=== PATIENT | female | born 1985 | race Caucasian/White ===

== ENCOUNTER 2017-11-22 16:43 | Emergency (ER) | payer OTHER ==
[~2017-11-22 16:43] MED LIST: ABIL10TA8 PO; CENTCHW4 CHEW; VITA1000 PO
[2017-11-22 17:04] VITALS: BP 122/60; PULSE 90; RESP 16; TEMP 99.5; O2SAT 100
[2017-11-22 18:34] LABS: BASOPHIL % 0.5 % (0.0-2.0); EOSINOPHIL # 0.1 TH/MM3 (0-0.4); EOSINOPHIL % 0.6 % (0.0-4.0); HEMOGLOBIN 12.3 GM/DL (11.6-15.3); LYMPH % 32.1 % (9.0-44.0); LYMPHOCYTE # 2.9 TH/MM3 (1.0-4.8); MEAN CELL VOLUME 81.3 FL (80.0-100.0); MEAN CORPUSCULAR HEMOGLOBIN 28.5 PG (27.0-34.0); MEAN CORPUSCULAR HGB CONC 35.1 % (32.0-36.0); MEAN PLATELET VOLUME 8.5 FL (7.0-11.0); MONOCYTE # 1.1 TH/MM3 (0-0.9); NEUT % 54.8 % (16.0-70.0); PLATELET COUNT 228 TH/MM3 (150-450); RED CELL DISTRIBUTION WIDTH 12.8 % (11.6-17.2)
[2017-11-22 18:39] LABS: AMORPHOUS SEDIMENT, URINE RARE; BACTERIA, URINE RARE /hpf; BILIRUBIN, URINE NEG (NEG); BLOOD, URINE MOD (NEG); GLUCOSE,URINE NEG (NEG); KETONE, URINE NEG (NEG); NITRITE,URINE NEG (NEG); PH, URINE 5.5 (5.0-8.5); SQUAMOUS EPITHELIAL CELL URINE 4 /hpf (0-5); URINE COLOR YELLOW (YELLW/STRAW); URINE LEUKOCYTE ESTERASE MOD (NEG)
[2017-11-22] MEDS ORDERED: TYLE325T PO (18:50)
[2017-11-22] MEDS ORDERED: CIPR500T2 PO (18:50)
[2017-11-22] MEDS ORDERED: NAPR250T4 PO (18:50)
[2017-11-22] MEDS ORDERED: ZOFR4TAB PO (18:50)
[2017-11-22 18:52] LABS: ALBUMIN 3.9 GM/DL (3.4-5.0); ALT (GPT) 36 U/L (10-53); AST (GOT) 27 U/L (15-37); BICARBONATE 29.5 MEQ/L (21.0-32.0); BLOOD UREA NITROGEN 8 MG/DL (7-18); CALCIUM 8.8 MG/DL (8.5-10.1); CHLORIDE 101 MEQ/L (98-107); CREATININE 0.78 MG/DL (0.50-1.00); GLOMERULAR FILTRATION RATE 86 ML/MIN (>89); GLUCOSE,RANDOM 100 MG/DL (74-106); SODIUM (NA) 136 MEQ/L (136-145)
[2017-11-22 18:53] LABS: ALKALINE PHOSPHATASE 89 U/L (45-117); TOTAL BILIRUBIN ADULT 1.1 MG/DL (0.2-1.0); TOTAL PROTEIN 8.1 GM/DL (6.4-8.2)
--- NOTE | 2017-11-22 18:59 | PD ---
HPI Chief Complaint: GI Complaint Time Seen by Provider: 18:40 Travel History International Travel<30 days: No Contact w/Intl Traveler<30days: No Traveled to known affect area: No History of Present Illness HPI 32-year-old female came to the emergency room with history of right lumbar pain for 5 days followed by vomiting and unable to keep anything down. Patient says that she saw her primary care 3 days ago and was given ciprofloxacin for possible UTI. Patient has taken 3 doses of it. She was also given nausea medication to go home with and she has not had any vomiting in past 24 hours. No history of diarrhea. She has not had a bowel movement in past 3-4 days. Patient felt lump/not in her right lumbar area where she has been hurting. Vital signs are stable. Blood test was done out in triage and the results are back. No aggravating or relieving factors identified for the pain. No radiation of the pain. No history of hematuria or dysuria. PFSH Past Medical History Narrative Medical List of her past medical, surgical, social and family history is reviewed from the nursing note. ?: Unknown LMP: "implanon" : 2 Para: 2 Social History Alcohol Use: Yes ("OCASSIONALLY") Tobacco Use: No Substance Use: No Allergies-Medications (Allergen,Severity, Reaction): Coded Allergies: cefixime (Unverified Allergy, Unknown, rash, 11/22/17) clindamycin (Unverified Allergy, Unknown, rash, 11/22/17) nitrofurantoin (Unverified Allergy, Unknown, rash, 11/22/17) Comments List of her allergies reviewed from the nursing note. Reported Meds & Prescriptions Reported Meds & Active Scripts Active Reported Tylenol (Acetaminophen) 325 Mg Tab 500 Mg PO Q6H PRN Naproxen 250 Mg Tab 250 Mg PO BID Ciprofloxacin (Ciprofloxacin HCl) 500 Mg Tab 500 Mg PO BID Zofran (Ondansetron HCl) 4 Mg Tab 4 Mg PO Q6HR PRN Vitamin D-1000 (Cholecalciferol) 1,000 Unit Tab 1,000 Units PO DAILY Abilify (Aripiprazole) 10 Mg Tab 10 Mg PO DAILY Narrative Medication List of her home medications reviewed from the nursing note Review of Systems Except as stated in HPI: all other systems reviewed are Neg Physical Exam Narrative GENERAL: Awake, alert, obese, no obvious distress SKIN: Focused skin assessment warm/dry. HEAD: Atraumatic. Normocephalic. EYES: Pupils equal and round. No scleral icterus. No injection or drainage. ENT: No nasal bleeding or discharge. Mucous membranes pink and moist. NECK: Trachea midline. No JVD. CARDIOVASCULAR: Regular rate and rhythm. No murmur appreciated. RESPIRATORY: No accessory muscle use. Clear to auscultation. Breath sounds equal bilaterally. GASTROINTESTINAL: Abdomen soft, non-tender, nondistended. Hepatic and splenic margins not palpable. MUSCULOSKELETAL: No obvious deformities. No clubbing. No cyanosis. No edema. NEUROLOGICAL: Awake and alert. No obvious cranial nerve deficits. Motor grossly within normal limits. Normal speech. PSYCHIATRIC: Appropriate mood and affect; insight and judgment normal. Data Data Last Documented VS Vital Signs Date Time Temp Pulse Resp B/P (MAP) Pulse Ox O2 Delivery O2 Flow Rate FiO2 11/22/17 17:04 99.5 90 16 122/60 (80) 100 Orders Orders Complete Blood Count With Diff (11/22/17 17:07) Comprehensive Metabolic Panel (11/22/17 17:07) Lipase (11/22/17 17:07) Urinalysis - C+S If Indicated (11/22/17 17:07) Ed Urine Pregnancytest Poc (11/22/17 17:07) Sodium Chlor 0.9% 1000 Ml Inj (Ns 1000 M (11/22/17 19:00) Ondansetron Inj (Zofran Inj) (11/22/17 19:00) Ct Abd/Pel W/O Iv Contrast (11/22/17 ) Ed Discharge Order (11/22/17 19:48) Labs Laboratory Tests Test 11/22/17 17:49 11/22/17 17:55 Urine Color YELLOW Urine Turbidity CLEAR Urine pH 5.5 Urine Specific [place] 1.006 Urine Protein NEG mg/dL Urine Glucose (UA) NEG mg/dL Urine Ketones NEG mg/dL Urine Occult Blood MOD Urine Nitrite NEG Urine Bilirubin NEG Urine Urobilinogen LESS THAN 2.0 MG/DL Urine Leukocyte Esterase MOD Urine RBC 6 /hpf Urine WBC 8 /hpf Urine Squamous Epithelial Cells 4 /hpf Urine Amorphous Sediment RARE Urine Bacteria RARE /hpf Microscopic Urinalysis Comment CULT NOT INDICATED White Blood Count 9.0 TH/MM3 Red Blood Count 4.30 MIL/MM3 Hemoglobin 12.3 GM/DL Hematocrit 35.0 % Mean Corpuscular Volume 81.3 FL Mean Corpuscular Hemoglobin 28.5 PG Mean Corpuscular Hemoglobin Concent 35.1 % Red Cell Distribution Width 12.8 % Platelet Count 228 TH/MM3 Mean Platelet Volume 8.5 FL Neutrophils (%) (Auto) 54.8 % Lymphocytes (%) (Auto) 32.1 % Monocytes (%) (Auto) 12.0 % Eosinophils (%) (Auto) 0.6 % Basophils (%) (Auto) 0.5 % Neutrophils # (Auto) 5.0 TH/MM3 Lymphocytes # (Auto) 2.9 TH/MM3 Monocytes # (Auto) 1.1 TH/MM3 Eosinophils # (Auto) 0.1 TH/MM3 Basophils # (Auto) 0.0 TH/MM3 CBC Comment DIFF FINAL Differential Comment Blood Urea Nitrogen 8 MG/DL Creatinine 0.78 MG/DL Random Glucose 100 MG/DL Total Protein 8.1 GM/DL Albumin 3.9 GM/DL Calcium Level 8.8 MG/DL Alkaline Phosphatase 89 U/L Aspartate Amino Transf (AST/SGOT) 27 U/L Alanine Aminotransferase (ALT/SGPT) 36 U/L Total Bilirubin 1.1 MG/DL Sodium Level 136 MEQ/L Potassium Level 3.5 MEQ/L Chloride Level 101 MEQ/L Carbon Dioxide Level 29.5 MEQ/L Anion Gap 6 MEQ/L Estimat Glomerular Filtration Rate 86 ML/MIN Lipase 65 U/L MDM Medical Decision Making Medical Screen Exam Complete: Yes Emergency Medical Condition: Yes Medical Record Reviewed: Yes Differential Diagnosis Renal colic, ureteral colic, abdominal pain NOS, gastritis Narrative Course 7:54 PM blood test results are back and within acceptable limits. UA is negative. I ordered a CT scan of her abdomen and pelvis which shows no acute findings. I am comfortable discharging her home. She has nausea medication as well as ciprofloxacin. Patient will be discharged home. Procedures EKG Prior to Arrival: No Diagnosis Primary Impression: Acute gastritis Qualified Codes: K29.00 - Acute gastritis without bleeding Referrals: Primary Care Physician 3 days Additional Instructions: Please return to the ER if condition worsens or any other new concerns. Otherwise continue medication as given to you by your primary care. Take this medication as but this prescription. Med/Other Pt SpecificInfo: Prescription(s) given Scripts Omeprazole (Omeprazole) 20 Mg Tab 20 MG PO DAILY, #15 TAB 0 Refills Prov: Keerthi Cunha MD 11/22/17 Disposition: 01 DISCHARGE HOME Condition: Stable Keerthi Cunha MD Nov 22, 2017 18:59
[2017-11-22] MEDS ORDERED: SODIUM CHLOR 0.9% 1000 ML INJ 1,000 ML IV ONE (19:00)
[2017-11-22] MEDS ORDERED: ONDANSETRON HCL 4 MG/2 ML VIAL IV PUSH ONE (19:00)
--- NOTE | 2017-11-22 19:46 | RADRPT ---
EXAM DATE/TIME: 11/22/2017 19:26 [facility] COMPARISON: No previous studies available for comparison. INDICATIONS : Abdomen pain with vomiting. ORAL CONTRAST: No oral contrast ingested. RADIATION DOSE: 14.84 CTDIvol (mGy) MEDICAL HISTORY : Bleeding disorder. SURGICAL HISTORY : None. ENCOUNTER: Initial ACUITY: 1 day PAIN SCALE: 3/10 LOCATION: Bilateral abdomen TECHNIQUE: Volumetric scanning of the abdomen and pelvis was performed. Using automated exposure control and ad justment of the mA and/or kV according to patient size, radiation dose was kept as low as reasonably achievable to obtain optimal diagnostic quality images. DICOM format image data is available electro nically for review and comparison. FINDINGS: LOWER LUNGS: The visualized lower lungs are clear. LIVER: Homogeneous density without lesion for noncontrast technique. There is no dilation of the biliary tr ee. No calcified gallstones. SPLEEN: Normal size without lesion. PANCREAS: Within normal limits. KIDNEYS: Normal in size and shape. There is no mass, calcified stone, or hydronephrosis. There is a faint in duration of the fat of the right perirenal space without focal fluid collection. Both ureters are no rmal in dimension. ADRENAL GLANDS: Within normal limits. VASCULAR: There is no aortic aneurysm. BOWEL/MESENTERY: No dilated loops of small or large bowel. Stool seen throughout the colon. The cecum is located in the pelvis, adjacent to the rectosigmoid region. No evidence of free fluid. ABDOMINAL WALL: Within normal limits. RETROPERITONEUM: There is no lymphadenopathy. BLADDER: No wall thickening or mass. REPRODUCTIVE: Anteverted uterus. INGUINAL: There is no lymphadenopathy or hernia. MUSCULOSKELETAL: Within normal limits for patient age. CONCLUSION: 1. No dilated loops of small or large bowel. Incidental note of the cecum being located in the deep pelvis adjacent to the rectosigmoid region. 2. There is some mild induration of the fat of the right perirenal space which is of uncertain signif icance. No calcified renal stones and no evidence of hydronephrosis. Sylvain Marcano MD on November 22, 2017 at 19:40 Board Certified Radiologist. This report was verified electronically.
[2017-11-22] MEDS ORDERED: OMEP20TA93 PO (19:57)
== END 2017-11-22 21:45 | disposition home or self-care (01) ==
LOC: NEPD 16:43
DX: K29.00 Acute gastritis without bleeding (principal); Z88.1 Allergy status to other antibiotic agents; Z88.8 Allergy status to other drugs, medicaments and biological substances
CPT/HCPCS: 74176; 80053; 81001; 83690; 84703; 85025; 96361; 96374; 99284; J2405; J7030